=== PATIENT | female | born 1970 | race African-American/Black ===

== ENCOUNTER → 2017-11-22 | Outpatient (CLI) | payer BC ==
--- NOTE | 2017-11-22 10:14 | WOMENS IMAGING REPORT ---
EXAM DESCRIPTION: BILAT SCREENING MAMMO W/CAD COMPLETED DATE/TIME: 11/22/2017 7:13 am REASON FOR STUDY: ROUTINE BILATERAL SCREENING;Z12.31 Z12.31 ENCNTR SCREEN MAMMOGRAM FOR MALIGNANT N EOPLASM OF RUBA COMPARISON: None. TECHNIQUE: Standard craniocaudal and mediolateral oblique views of each breast recorded using Curiyoa l acquisition. LIMITATIONS: None. FINDINGS: No masses, calcifications or architectural distortion. No areas of suspicion. Read with the assistance of CAD. .[facility] - R2 Cenova Version 1.3 .[facility] - R2 Cenova Version 1.3 .[facility] - R2 Cenova Version 2.4 .[facility] [place] R2 Cenova Version 2.4 .[facility] - R2 Software Test Automation Engineer Version 9.2 IMPRESSION: NORMAL MAMMOGRAM. BIRADS 1. BREAST DENSITY: b. There are scattered areas of fibroglandular density. BIRAD: 1 NEGATIVE RECOMMENDATION: ROUTINE SCREENING COMMENT: The patient has been notified of the results by letter per SA requirements. Additional no tification policies are in place for contacting patient with suspicious or incomplete findings. Quality ID #[id number]: The [employer] recommends an annual screening mammogram for women aged 40 years or over. This facility utilizes a reminder system to ensure that all patients receive reminder letters, and/or direct phone calls for appointments. This includes reminders for routine scr eening mammograms, diagnostic mammograms, or other Breast Imaging Interventions when appropriate. Th is patient will be placed in the appropriate reminder system. The [employer] (ACR) has developed recommendations for screening MRI of the breast s in certain patient populations, to be used in conjunction with mammography. Breast MRI surveillanc e may be appropriate for women with more than 20% lifetime risk of developing breast cancer as deter mined by genetic testing, significant family history of the disease, or history of mantle radiation f or Hodgkins Disease. ACR Practice Guidelines 2008. TECHNICAL DOCUMENTATION: FINDING NUMBER: (1) ASSESSMENT: (1) JOB ID: [id number] [employer]- All Rights Reserved Reading location - IP/workstation name: [facility]
== END ==
LOC: WI 06:52
PROVIDERS: ATTEND Nurse Practitioner Family
DX: Z12.31 Encounter for screening mammogram for malignant neoplasm of breast (principal)
CPT/HCPCS: 77067

== ENCOUNTER 2018-08-22 07:23 | Emergency (ER) | payer BC ==
[2018-08-22 07:28] VITALS: BP 131/95
--- NOTE | 2018-08-22 07:52 | ER Document Report ---
ED General - General Chief Complaint: Ear Pain Stated Complaint: PAIN ON RIGHT SIDE OF FACE Time Seen by Provider: 08/22/18 07:45 Primary Care Provider: CATIE GERMAN FNP-C [Primary Care Provider] - Follow up as needed Notes: 48 female with history of dental implants/feeling/root canal presents with right face pain, originating at the right upper molar radiating to the cheek and the jaw. Spares the ear. Is been there for 5 days. No fever. Difficult to eat on that side. No neck stiffness, no drainage. No difficulty opening mouth and no trouble swallowing. Ibuprofen not working. TRAVEL OUTSIDE OF THE [place] IN LAST 30 DAYS: No - Related Data Allergies/Adverse Reactions: No Known Allergies Allergy (Verified 08/22/18 07:24) Past Medical History - Social History Smoking Status: Unknown if Ever Smoked Family History: None Patient has suicidal ideation: No Patient has homicidal ideation: No Renal/ Medical History: Denies: Hx Peritoneal Dialysis Review of Systems - Review of Systems Notes: REVIEW OF SYSTEMS GEN: Denies fever, chills, weight loss ENT: Tooth pain face pain EYES: Denies blurry vision, eye pain, discharge CV: Denies chest pain, palpitations, edema RESP: Denies cough, shortness of breath, wheezing GI: Denies abdominal pain, nausea, vomiting, diarrhea MSK: Denies joint pain/swelling, edema, SKIN: Denies rash, skin lesions LYMPH: Denies swollen glands/lymph nodes NEURO: Denies headache, focal weakness or numbness, dizziness PSYCH: Denies depression, suicidal or homicidal ideation PHYSICAL EXAMINATION General: No acute distress, well-nourished Head: Atraumatic, normocephalic ENT: Mouth normal, oropharynx moist, no exudates or tonsillar enlargement, tender right upper molar without signs of infection internally, no cheek swelling, no jaw line of securement or swelling/abscess, floor the mouth soft neck soft no trismus tympanic member in the right. Eyes: Conjunctiva normal, pupils equal, lids normal Neck: No JVD, supple, no guarding CVS: Normal rate, regular rhythm, no murmurs Resp: No resp distress, equal and normal breath sounds bilaterally GI: Nondistended, soft, no tenderness to palpation, no rebound or guarding Ext: No deformities, no edema, normal range of motion in upper and lower ext Back: No CVA or midline TTP Skin: No rash, warm Lymphatic: No lymphadeopathy noted Neuro: Awake, alert. Face symmetric. GCS 15. Physical Exam - Vital signs Vitals: Temp Pulse Resp BP Pulse Ox 98.1 F 74 16 131/95 H 97 08/22/18 07:27 08/22/18 07:27 08/22/18 07:27 08/22/18 07:27 08/22/18 07:27 Course - Re-evaluation Re-evalutation: 08/22/18 07:51 Right facial pain for 5 days without fever or signs of intra-oral infection could be odontogenic, doubt otitis, also could be sinus. Will prescribe antibio tics and pain medication. No signs of blood wakes airway obstruction or need for CT scan at this time, will follow up with dentistry. Augmentin and Percocet are prescribed. I have discussed with the patient there likely diagnosis, aftercare plan, follow-up plans and my usual and customary return precautions. They verbalized understanding of this. - Vital Signs Vital signs: Temp Pulse Resp BP Pulse Ox 98.1 F 74 16 131/95 H 97 08/22/18 07:27 08/22/18 07:27 08/22/18 07:27 08/22/18 07:27 08/22/18 07:27 Discharge - Discharge Clinical Impression: Facial pain Condition: Good Disposition: HOME, SELF-CARE Additional Instructions: You have evidence of a tooth infection and we are prescribing antibiotics and pain medication. If your pain gets worse or is not controlled with the medic mihir, he developed mouth swelling difficulty swallowing or breathing, or worsening headache/neck stiffness please return to the emergency room immediately. Otherwise please follow-up with your dentist. Prescriptions: Amoxicillin/Potassium Clav [Augmentin 500-125 Tablet] 1 each PO BID #20 tablet Oxycodone HCl/Acetaminophen [Percocet 5-325 mg Tablet] 1 - 2 tab PO Q4H PRN #15 tablet PRN Reason: Referrals: CATIE GERMAN, LAMINC [Primary Care Provider] - Follow up as needed
== END 2018-08-22 07:55 | disposition home or self-care (01) ==
LOC: ER 07:23
DX: R51 Headache (principal)
CPT/HCPCS: 99282

== ENCOUNTER → 2019-08-29 | Outpatient (CLI) | payer BC ==
--- NOTE | 2019-08-29 11:49 | ER RDC ASSESSMENT REPORT ---
Intake - In the Last 14 days Have you been in close contact with someone CONFIRMED: No Worked in Healthcare?: Yes - Symptoms Subjective Fever([place] feverish): Yes Chills: Yes Muscule Aches: No Runny Nose: No Sore Throat: Yes Cough (New or worsening chronic cough): Yes Shortness of breath: Yes Nausea or Vomiting: No Headache: Yes Abdominal Pain: No Diarrhea(3 or more loose stools in last 24 hours): No - Do you have any of the following Chronic lung disease: Asthma or emphysema or COPD: Yes Chronic Lung Disease Comment: Patient currently being treated for active pneumonia Cystic Fibrosis: No Diabetes: No High Blood Pressure: No Cardiovascular Disease: No Chronic Kidney Disease: No Chronic Liver Disease: No Chronic blood disorder like Sickle Cell Disease: No Weak immune system due to disease or medication: No Neurologic condition that limits movement: No Developmental delay - Moderate to Severe: No Recent (within past 2 weeks) or current : No Morbid Obesity (>100 pounds over ideal weight): No Obesity Comment: Height 4 feet weight 185 pounds - Objective Temperature: 98.0 F Pulse Rate: 97 Respiratory Rate: 20 Blood Pressure: 122/72 O2 Sat by Pulse Oximetry: 95 Objective: Given above, testing performed: If Testing Performed: Test Specimen Type Sent to General - General Information source: Patient Notes: Patient here at [facility] for Covid testing. Has been sick with upper respiratory illness since July 31 and has been treated for pneumonia. Continues with cough chills sore throat. Follows with PCP at [facility]. Recommended to have COVID screening performed - Related Data Allergies/Adverse Reactions: No Known Allergies Allergy (Verified 08/22/18 07:24) Past Medical History - General Information source: Patient - Social History Smoking Status: Never Smoker Family History: None Renal/ Medical History: Denies: Hx Peritoneal Dialysis Physical Exam - General General appearance: Appears well, Alert In distress: None Notes: PHYSICAL EXAMINATION: GENERAL: Well-appearing and in no acute distress. HEAD: Atraumatic, normocephalic. EYES: sclera anicteric, conjunctiva are normal. ENT: nares patent. Moist mucous membranes. NECK: Normal range of motion, supple without lymphadenopathy LUNGS: CTAB and equal. No wheezes rales or rhonchi. Lung sounds clear resp even and unlabored. Occasional dry cough noted. HEART: Regular rate and rhythm without murmurs ABDOMEN: Soft, nontender, normal bowel sounds, no guarding. EXTREMITIES: No cyanosis. NEUROLOGICAL: Normal gait. PSYCH: Normal mood, normal affect. SKIN: Warm, Dry, normal turgor, no rashes or lesions noted Diagnostic Results Laboratory Results: Informed of negative rapid strep and negative rapid flu results. pending strep culture pending strep COVID testing results. Patient provided instructions regarding COVID to include: As a person under investigation for Covid 19, the [facility] of Health and Human Services, division of public health advises you to adhere to the following guidance until your test results are reported to you. If your test result is positive, you will receive additional information from your provider and your local health department at that time. Remain at home until you are cleared by the health provider or public health authorities. Keep a log of visitors to your home, notify any visitors to your home of your isolation status. If you plan to move to a new address or leave the community health, notify the local health department in your [facility]. Call your doctor or seek care if you have an urgent medical need. Before seeking medical care, call ahead to get instructions from the provider before arriving at the medical office clinic or hospital. Notify them that you are being tested for the virus that causes Covid 19 so that arrangements can be made, as necessary, to prevent transmission to others in the healthcare setting. Next, notify the local health department in your community health. If a medical emergency arises and you need to call 911, inform the first responders that you are being tested for the virus that causes Covid 19. Next, notify the local health department in your community health. Patient Education/Counseling Counseling/Education: Patient presents with upper respiratory symptoms worrisome for possible Covid 19. Patient does not have emergency worring symptoms such as difficulty breathing, shortness of breath, chest pain, pressure, confusion or cyanosis. Patient appears suitable for discharge. Patient instructed to follow up with PCP at [facility] for persistent or worsening symptoms. Patient's vital signs are stable and patient is nontoxic in appearance. Good return precautions have been discussed with patient, patient verbalized understanding and is agreeable with discharge plan of care at this time. RDC Discharge - Discharge Clinical Impression: COVID - 19 SCREENING Condition: Stable Disposition: Home; Selfcare
[2019-08-29 11:56] VITALS: BP 122/72
[2019-08-29 12:33] LABS: A TYPE INFLUENZA AG NEGATIVE (NEGATIVE); B INFLUENZA AG NEGATIVE (NEGATIVE)
== END ==
LOC: RDC 11:05
PROVIDERS: ATTEND Nurse Practitioner Family
DX: Z20.828 Contact with and (suspected) exposure to other viral communicable diseases (principal); R50.9 Fever, unspecified; R05 Cough; J02.9 Acute pharyngitis, unspecified; Z87.01 Personal history of pneumonia (recurrent); R06.02 Shortness of breath; R51 Headache
CPT/HCPCS: 87070; 87635; 87804; 87880; 99211

== ENCOUNTER → 2019-10-15 | Outpatient (CLI) | payer BC ==
--- NOTE | 2019-10-15 14:37 | RADIOLOGY REPORT (SQ) ---
EXAM DESCRIPTION: CHEST PA/LATERAL IMAGES COMPLETED DATE/TIME: 10/15/2019 2:29 pm REASON FOR STUDY: OTH RESP COND DUE TO CHEMICALS, GASES, FUMES AND VAPORS COMPARISON: None. EXAM PARAMETERS: NUMBER OF VIEWS: two views TECHNIQUE: Digital Frontal and Lateral radiographic views of the chest acquired. RADIATION DOSE: NA LIMITATIONS: none FINDINGS: LUNGS AND PLEURA: No opacities, masses or pneumothorax. No pleural effusion. MEDIASTINUM AND HILAR STRUCTURES: No masses or contour abnormalities. HEART AND VASCULAR STRUCTURES: Heart normal size. No evidence for failure. BONES: No acute findings. HARDWARE: None in the chest. OTHER: No other significant finding. IMPRESSION: 1. NO SIGNIFICANT RADIOGRAPHIC FINDING IN THE CHEST. TECHNICAL DOCUMENTATION: JOB ID: [id number] 2010 [employer]- All Rights Reserved Reading location - IP/workstation name: [email or web address]
== END ==
LOC: OD 14:06
PROVIDERS: ATTEND Internal Medicine
DX: J68.8 Other respiratory conditions due to chemicals, gases, fumes and vapors (principal)
CPT/HCPCS: 71046

== ENCOUNTER → 2019-11-27 | Outpatient (CLI) | payer BC ==
--- NOTE | 2019-11-27 20:17 | XCELERA REPORT ---
[address] [address] Transthoracic Echocardiogram Report Name: THANH APPLE Age: 49 yrs Gender: Female : 1970 Patient Status: Outpatient Patient Location: Study Date: 11/27/2019 09:11 AM History: Dyspnea Height: 59 in Weight: 189 lb BSA: 1.8 m2 Procedure: A complete two-dimensional transthoracic echocardiogram was performed (2D, M-mode, spectral and color flow Doppler). The study was technically difficult with many images being suboptimal in quality. Reason For Study: TOVAR Previous Evaluation: No previous studies were available. History: Shortness of breath. Ordering Physician: KAYLA ROTHMAN Performed By: Joselin Reese Interpretation Summary Left ventricular systolic function is normal. The Ejection Fraction estimate is 55-60% The right ventricle is normal in size and function. There is no mitral regurgitation noted. There is no aortic valve stenosis There is a trace amount of tricuspid regurgitation There is no pericardial effusion. MMode/2D Measurements & Calculations RVDd: 1.7 cm LVIDd: 4.1 cm FS: 35.7 % Ao root diam: 2.4 cm IVSd: 0.89 cm LVIDs: 2.6 cm EDV(Teich): 74.0 ml Ao root area: 4.7 cm2 LVPWd: 0.88 cm ESV(Teich): 25.4 ml EF(Teich): 65.7 % Doppler Measurements & Calculations MV E max vicky: MV dec slope: Ao V2 max: LV V1 max P.6 cm/sec 419.0 cm/sec2 154.0 cm/sec 4.5 mmHg MV A max vicky: MV dec time: 0.18 secAo max PG: LV V1 max: 83.4 cm/sec 9.5 mmHg 106.3 cm/sec MV E/A: 0.89 PA V2 max: PI max vicky: TR max vicky: 122.6 cm/sec 91.3 cm/sec 231.8 cm/sec PA max P.0 mmHg PI max P.3 mmHg TR max P.5 mmHg PI dec slope: 482.3 cm/sec2 Left Ventricle The left ventricle is normal in size. There is borderline concentric left ventricular hypertrophy. Left ventricular systolic function is normal. The Ejection Fraction estimate is 55-60%. The transmitral spectral Doppler flow pattern is normal for age. No regional wall motion abnormalities noted. Right Ventricle The right ventricle is normal in size and function. Atria The right atrium is normal. The left atrial size is normal. The interatrial septum is intact with no evidence for an atrial septal defect. There is no Doppler evidence for an interatrial shunt. Mitral Valve The mitral valve is grossly normal. There is no mitral valve stenosis. There is no mitral regurgitation noted. Aortic Valve The aortic valve is not well visualized secondary to technical limitations. The aortic valve opens well. There is no aortic valve stenosis. No aortic regurgitation is present. Tricuspid Valve The tricuspid valve is not well visualized, but is grossly normal. There is a trace amount of tricuspid regurgitation. Doppler findings do not suggest pulmonary hypertension. Pulmonic Valve The pulmonic valve is not well visualized. Great Vessels The aortic root is normal size. The inferior vena cava appeared small and collapsed with respiration (RAP 0-5 mmHg). Effusions There is no pericardial effusion. : KAYLA ROTHMAN Anil
== END ==
LOC: SP 09:55
PROVIDERS: ATTEND Internal Medicine Pulmonary Disease
DX: R06.09 Other forms of dyspnea (principal)
CPT/HCPCS: 93306